=== PATIENT | female | born 1965 | race Caucasian/White ===

== ENCOUNTER → 2017-01-16 | Outpatient (CLI) | payer BC ==
[~2017-01-16] MED LIST: ATV/1 PO; BUPR200T2 PO; PROP20TA67 PO; ZOLP5TAB PO
--- NOTE | 2017-01-17 14:35 | MAMMOGRAPHY REPORT ---
BILATERAL DIGITAL SCREENING MAMMOGRAM TOMOSYNTHESIS WITH CAD: 01/16/2017 CLINICAL HISTORY: Routine screening. Patient has no complaints. TECHNIQUE: Breast tomosynthesis in addition to standard 2D mammography was performed. Current study was also evaluated with a Computer Aided Detection (CAD) system. COMPARISON: Comparison is made to exams dated: 01/14/2016 mammogram, 01/12/2015 mammogram, 10/08/2013 mammogram, 07/18/2011 mammogram, 06/15/2010 mammogram, and 12/27/2009 mammogram - [facility]. BREAST COMPOSITION: The tissue of both breasts is almost entirely fatty. FINDINGS: No suspicious masses, calcifications, or areas of architectural distortion are noted in e ither breast. There has been no significant interval change compared to prior exams. Small mass wit h an associated biopsy marker clip in the right upper outer quadrant is stable. IMPRESSION: ACR BI-RADS CATEGORY 2: BENIGN There is no mammographic evidence of malignancy. A 1 year screening mammogram is recommended. The p atient will receive written notification of the results. Approximately 10% of breast cancers are not detected with mammography. A negative mammographic repor t should not delay biopsy if a clinically suggestive mass is present. Criselda Fox M.D. /:01/17/2017 11:38:14 Education And Outreach Coordinator: Aileen Bloom, [facility] letter sent: Normal 1/2 BI-RADS Code: ACR BI-RADS Category 2: Benign
== END | disposition home or self-care (01) ==
LOC: C.MAMM 08:47
PROVIDERS: ATTEND Family Medicine
DX: Z12.31 Encounter for screening mammogram for malignant neoplasm of breast (principal)

== ENCOUNTER 2017-09-19 13:10 | Emergency (ER) | payer BC ==
[~2017-09-19] VITALS: Ht 162.6 cm; Wt 95.6 kg
[2017-09-19 13:12] VITALS: TEMP 36.7
[2017-09-19 13:40] VITALS: O2SAT 95
--- NOTE | 2017-09-19 13:46 | EMERGENCY ROOM VISIT NOTE ---
History Report prepared by Lawson: Ivone Gregory Under the Supervision of: Dr. Alexei Maier M.D. First contact with patient: 13:35 Chief Complaint: CHEST PAIN Stated Complaint: CHEST PAIN Nursing Triage Summary: pt reports chest pain started today uncomfortable to wear bra stabbing feeling into back started at 0730 this am feels hot and cold migraine headache . feels shakey History of Present Illness The patient is a 52 year old female with a past medical history of endometriosis, hypertension, and genital herpes simplex who presents to the ED with a cc of intermittent left chest pain beginning 2 weeks ago. Positive nausea , vomiting, and productive cough. Negative diabetes. The patient states her pain worsens when touched. She notes that nothing seems to relieve her symptoms. She states she has had a migraine, noting she hasn't had one in years. The patient notes she is a smoker. Source of History: patient Onset: 2 weeks ago Position: chest (left) Timing: intermittent Modifying Factors (Worsening): other (touch) Associated Symptoms: + cough (productive), + nausea, + vomiting Review of Systems See HPI for pertinent positives and negatives. A total of ten systems were reviewed and were otherwise negative. Past Medical & Surgical Medical Problems: (1) Chest pain (2) Endometriosis (3) Genital herpes simplex Family History Diabetes mellitus Social History Smoking Status: Current Every Day Smoker Marital Status: Housing Status: lives with significant other Occupation Status: employed Current/Historical Medications Scheduled Bupropion HCl (Bupropion HCl Sr), 1 TAB PO DAILY Doxepin HCl (Doxepin HCl), 1 CAP PO DAILY Ibuprofen-Famotidine (Duexis), 1 TAB PO UD Lorazepam (Ativan), 1 MG PO HS Ondasetron Odt (Zofran Odt), 4 MG SL Q6H Propranolol (Inderal), 40 MG PO BID Scheduled PRN Zolpidem Tartrate (Ambien), 5 MG PO HS PRN for Sleep Allergies Coded Allergies: Codeine (Verified Allergy, Unknown, ., 09/19/17) Metronidazole (Verified Allergy, Unknown, ., 09/19/17) Physical Exam Vital Signs Date Time Temp Pulse Resp B/P (MAP) Pulse Ox O2 Delivery O2 Flow Rate FiO2 09/19/17 16:00 59 20 129/68 97 Room Air 09/19/17 15:30 59 18 138/88 09/19/17 15:00 65 19 122/58 96 Room Air 09/19/17 14:48 57 16 119/72 94 Room Air 09/19/17 13:40 61 20 146/94 94 Room Air 09/19/17 13:40 95 Room Air 09/19/17 13:37 64 09/19/17 13:12 36.7 69 18 168/95 100 Room Air Physical Exam GENERAL: Awake, alert, well-appearing, NAD HENT: Normocephalic, atraumatic. EYES: Normal conjunctiva. Sclera non-icteric. NECK: Supple. No nuchal rigidity. FROM. RESPIRATORY: CTAB, no rhonchi, wheezing, crackles CARDIAC: RRR, no MRG ABDOMEN: Mild epigastric pain. Soft, BS+ MSK: Mild chest wall TTP, no LE edema NEURO: GCS 15, CN 2-12 intact, moves all 4s on command SKIN: No rash or jaundice noted. Medical Decision & Procedures ER Provider Diagnostic Interpretation: Radiology results as stated below per my review and radiologist interpretation: CHEST ONE VIEW PORTABLE CLINICAL HISTORY: 52 years-old Female presenting with EVALUATE RESPIRATORY DISTRESS.DYSPNEA. TECHNIQUE: Portable upright AP view of the chest was obtained. COMPARISON: 01/05/2015. FINDINGS: Cardiomediastinal silhouette normal. Mild pulmonary vascular prominence. Lungs and pleural spaces clear. Osseous structures normal. Upper abdomen normal. IMPRESSION: 1. Mild pulmonary vascular prominence could suggest volume overload. Otherwise no acute cardiopulmonary disease. Electronically signed by: Ronald Archer M.D. 09/19/2017 2:21 PM Dictated Date/Time: 09/19/2017 2:19 PM Laboratory Results 09/19/17 13:40 Red Blood Count 4.49, Mean Corpuscular Volume 95.3, Mean Corpuscular Hemoglobin 31.6, Mean Corpuscular Hemoglobin Concent 33.2, Mean Platelet Volume 10.8, Neutrophils (%) (Auto) 71.5, Lymphocytes (%) (Auto) 19.3, Monocytes (%) (Auto) 8.2, Eosinophils (%) (Auto) 0.4, Basophils (%) (Auto) 0.2, Neutrophils # (Auto) 7.63, Lymphocytes # (Auto) 2.06, Monocytes # (Auto) 0.87, Eosinophils # (Auto) 0.04, Basophils # (Auto) 0.02 09/19/17 13:40 Test 09/19/17 13:40 09/19/17 14:45 White Blood Count 10.66 K/uL (4.8-10.8) Red Blood Count 4.49 M/uL (4.2-5.4) Hemoglobin 14.2 g/dL (12.0-16.0) Hematocrit 42.8 % (37-47) Mean Corpuscular Volume 95.3 fL (80-100) Mean Corpuscular Hemoglobin 31.6 pg (25-34) Mean Corpuscular Hemoglobin Concent 33.2 g/dl (32-36) Platelet Count 290 K/uL (130-400) Mean Platelet Volume 10.8 fL (7.4-10.4) Neutrophils (%) (Auto) 71.5 % Lymphocytes (%) (Auto) 19.3 % Monocytes (%) (Auto) 8.2 % Eosinophils (%) (Auto) 0.4 % Basophils (%) (Auto) 0.2 % Neutrophils # (Auto) 7.63 K/uL (1.4-6.5) Lymphocytes # (Auto) 2.06 K/uL (1.2-3.4) Monocytes # (Auto) 0.87 K/uL (0.11-0.59) Eosinophils # (Auto) 0.04 K/uL (0-0.5) Basophils # (Auto) 0.02 K/uL (0-0.2) RDW Standard Deviation 46.1 fL (36.4-46.3) RDW Coefficient of Variation 13.4 % (11.5-14.5) Immature Granulocyte % (Auto) 0.4 % Immature Granulocyte # (Auto) 0.04 K/uL (0.00-0.02) Prothrombin Time 9.7 SECONDS (9.0-12.0) Prothromb Time International Ratio 0.9 (0.9-1.1) Activated Partial Thromboplast Time 25.3 SECONDS (21.0-31.0) Partial Thromboplastin Ratio 1.0 Anion Gap 3.0 mmol/L (3-11) Est Creatinine Clear Calc Drug Dose 77.8 ml/min Estimated GFR () 79.4 Estimated GFR (Non- 68.5 BUN/Creatinine Ratio 13.9 (10-20) Calcium Level 8.8 mg/dl (8.5-10.1) Total Bilirubin 0.4 mg/dl (0.2-1) Aspartate Amino Transf (AST/SGOT) 12 U/L (15-37) Alanine Aminotransferase (ALT/SGPT) 28 U/L (12-78) Alkaline Phosphatase 103 U/L (45-117) Troponin I < 0.015 ng/ml (0-0.045) Pro-B-Type Natriuretic Peptide 75 pg/ml (0-900) Total Protein 7.4 gm/dl (6.4-8.2) Albumin 3.6 gm/dl (3.4-5.0) Globulin 3.8 gm/dl (2.5-4.0) Albumin/Globulin Ratio 0.9 (0.9-2) Urine Color YELLOW Urine Appearance CLEAR (CLEAR) Urine pH 6.5 (4.5-7.5) Urine Specific [place] 1.011 (1.000-1.030) Urine Protein NEG (NEG) Urine Glucose (UA) NEG (NEG) Urine Ketones NEG (NEG) Urine Occult Blood NEG (NEG) Urine Nitrite NEG (NEG) Urine Bilirubin NEG (NEG) Urine Urobilinogen NEG (NEG) Urine Leukocyte Esterase NEG (NEG) Laboratory results reviewed by me Medications Administered Medications (Trade) Dose Ordered Sig/Travis Route Start Time Stop Time Status Last Admin Dose Admin Acetaminophen (Tylenol Tab) 1,000 mg NOW STAT PO 09/19/17 13:52 09/19/17 13:55 DC 09/19/17 14:06 1,000 MG Ondansetron HCl (Zofran Inj) 4 mg NOW STAT IV 09/19/17 13:52 09/19/17 13:55 DC 09/19/17 14:06 4 MG Famotidine (Pepcid Tab) 20 mg NOW ONCE PO 09/19/17 14:00 09/19/17 14:01 DC 09/19/17 14:06 20 MG Ketorolac Tromethamine (Toradol Inj) 30 mg NOW STAT IV 09/19/17 13:52 09/19/17 13:56 DC 09/19/17 14:06 30 MG Lidocaine HCl (Viscous Lidocaine 2% Soln) 20 ml STK-MED ONCE .ROUTE 09/19/17 14:01 09/19/17 14:02 DC 09/19/17 14:06 10 ML Al Hydroxide/Mg Hydroxide (Maalox Susp) 30 ml STK-MED ONCE .ROUTE 09/19/17 14:01 09/19/17 14:02 DC 09/19/17 14:06 30 ML Cyclobenzaprine HCl (Flexeril Tab) 5 mg ONE STAT PO 09/19/17 15:52 09/19/17 16:01 DC 09/19/17 16:07 5 MG ECG Indication: chest pain Rate (beats per minute): 72 Rhythm: normal sinus Findings: left axis deviation (some), other (normal intervals, isolated TWI lead 3) ED Course 1344: The patient was evaluated in room C5. A complete history and physical exam was performed. Encountered for smoking cessation counseling. 1435: I reevaluated the patient, who was resting comfortably. I discussed some findings with her. She verbalized complete understanding and agreement. 1533: I reevaluated the patient, who was resting comfortably. She states that she feels better but she is not back to her normal state. Discussed results and discharge instructions: She verbalized understanding and agreement. The patient is ready for discharge. Medical Decision The patient is a 52 year old female with a past medical history of endometriosis, hypertension, and genital herpes simplex who presents to the ED with a cc of intermittent left chest pain beginning 2 weeks ago. Differential diagnosis: Etiologies such as metabolic, infection, hypo/hyperglycemia, electrolyte abnormalities, cardiac sources, intracerebral event, toxicologic, neurologic, as well as others were entertained. Patient was seen and evaluated the bedside. Patient did complain of some left- sided chest pain that have began about 2 weeks ago. Patient thought it was either extraintestinal did take some Tums with some mild relief however it is been slightly more persistent. On exam the patient does complain of that decision to headache. Patient has a normal neurologic exam. Patient does have mild reproducible left sided chest pain. Patient did not complain of any diaphoresis or exertional chest pain. Patient has no family history of early cardiac disease before the age 65. Patient is a smoker. Patient was told that she should consider smoking cessation. Patient did have blood work completed along with an EKG, troponin, chest x-ray. Patient's EKG did show a single isolated T wave inversion in lead 3. Patient does have some risk factors and his over the age of 50 however the patient's heart score is less than 4 and thus likely low risk and suitable for outpatient follow-up and treatment. Patient was advised follow-up with her primary care physician with regard to this. Patient is PRC 01 given her age however the patient has a Wells of 0 less less likely PE. Patient's chest x-ray showed mild pulm prominence. However, the patient did not show signs of right heart strain as the patient does not have any right axis deviation nor did she have T-wave inversions in the anterior leads. CXR did not show any evidence of consolidation, pneumothorax, or pleural effusion. Patient's pain was mildly improved. Patient was deemed suitable for outpatient follow-up and treatment at this time. Patient was given strict follow-up, discharge, and return precautions. All questions were answered. Patient was deemed suitable for outpatient follow-up at this time. Patient agreed with the plan of care and was safely discharged home. Medication Reconcilliation Current Medication List: was personally reviewed by me Blood Pressure Screening Patient's blood pressure: Normal blood pressure Blood pressure disposition: Did not require urgent referral Impression Primary Impression: Chest pain Additional Impressions: Epigastric pain Encounter for smoking cessation counseling Scribe Attestation The scribe's documentation has been prepared under my direction and personally reviewed by me in its entirety. I confirm that the note above accurately reflects all work, treatment, procedures, and medical decision making performed by me. Departure Information Dispostion Home / Self-Care Prescriptions Ondasetron Odt (ZOFRAN ODT) 4 Mg Tab 4 MG SL Q6H for Nausea, #6 TAB Prov: Alexei Maier M.D. 09/19/17 Referrals Rob Hamlin, DJossyOJossy (PCP) Forms Call Back Authorization, HOME CARE DOCUMENTATION FORM, IMPORTANT VISIT INFORMATION Patient Instructions Chest Pain - [facility], ED Epigastric Pain [facility] Additional Instructions Please return to the emergency department if you have worsening or recurrent symptoms not amenable to at-home treatment. Please call for a follow-up appointment with her primary care physician. Please take your medications as prescribed. If you have other concerns and/or complaints please feel free to also call your primary care physician's office or return the ED for further evaluation, management, and treatment. You may try mcon-inl-mzznbgw type medications like Zantac or Pepcid. You may also try Nexium if this does not work. Try smaller meals and avoid spicy, citrus, alcohol, tobacco, peppermint, chocolate. Consider eating smaller meals. Please consider smoking cessation. Please also follow-up with your primary care physician to discuss further follow -up, treatment, and management of your chest pain. Take your medications as prescribed. You have been examined and treated today on an emergency basis only. This is not a substitute for, or an effort to provide, complete comprehensive medical care. It is impossible to recognize and treat all injuries or illnesses in a single emergency department visit. It is therefore important that you follow up closely with [facility], your PCP, and/or your specialist(s). Call as soon as possible for an appointment. Thank you for your time and consideration. I look forward to speaking with you again soon. Please don't hesitate to call us if you have any questions. Problem Qualifiers Primary Impression: Chest pain Chest pain type: unspecified Qualified Codes: R07.9 - Chest pain, unspecified
[2017-09-19] MEDS ORDERED: IBUP1TAB51 PO (13:48)
[2017-09-19] MEDS ORDERED: WLLSR150 PO (13:48)
[2017-09-19] MEDS ORDERED: SNQ25 PO (13:48)
[2017-09-19] MEDS ORDERED: ONDANSETRON INJ 2 MG/ML 2 ML VIAL IV STA (13:52)
[2017-09-19] MEDS ORDERED: ACETAMINOPHEN 500 MG TAB PO STA (13:52)
[2017-09-19] MEDS ORDERED: GI COCKTAIL PO STA (13:52)
[2017-09-19] MEDS ORDERED: KETOROLAC TROMETHAMINE 30 MG/ML VIAL IV STA (13:52)
[2017-09-19 13:56] VITALS: Ht 162.6 cm; Wt 95.6 kg
[2017-09-19] MEDS ORDERED: FAMOTIDINE 20 MG TAB PO ONE (14:00)
[2017-09-19] MEDS ORDERED: ALUMINUM/MAGNESIUM SUSP 30 ML UDC ONE (14:01)
[2017-09-19] MEDS ORDERED: LIDOCAINE HCL 2% VISC SOLN 20 ML UDC ONE (14:01)
[2017-09-19 14:12] LABS: BASO % 0.2 %; BASO ABS # 0.02 K/uL (0-0.2); COMPLETE YES; EOS % 0.4 %; HEMATOCRIT 42.8 % (37-47); IG% 0.4 %; LYMPH % 19.3 %; LYMPH ABS # 2.06 K/uL (1.2-3.4); MEAN CELL VOLUME 95.3 fL (80-100); MEAN CORPUSCULAR HEMOGLOBIN 31.6 pg (25-34); MEAN CORPUSCULAR HGB CONC 33.2 g/dl (32-36); MEAN PLATELET VOLUME 10.8 fL (7.4-10.4); MONO % 8.2 %; NEUT % 71.5 %; PLATELET COUNT 290 K/uL (130-400); RED BLOOD COUNT 4.49 M/uL (4.2-5.4); WHITE BLOOD COUNT 10.66 K/uL (4.8-10.8)
[2017-09-19 14:16] LABS: INR 0.9 (0.9-1.1); PROTHROMBIN TIME (PATIENT) 9.7 SECONDS (9.0-12.0)
--- NOTE | 2017-09-19 14:22 | DIAGNOSTIC IMAGING REPORT ---
CHEST ONE VIEW PORTABLE CLINICAL HISTORY: 52 years-old Female presenting with EVALUATE RESPIRATORY DISTRESS.DYSPNEA. TECHNIQUE: Portable upright AP view of the chest was obtained. COMPARISON: 01/05/2015. FINDINGS: Cardiomediastinal silhouette normal. Mild pulmonary vascular prominence. Lungs and pleural spaces clear. Osseous structures normal. Upper abdomen normal. IMPRESSION: 1. Mild pulmonary vascular prominence could suggest volume overload. Otherwise no acute cardiopulmonary disease. Electronically signed by: Ronald Archer M.D. 09/19/2017 2:21 PM Dictated Date/Time: 09/19/2017 2:19 PM
[2017-09-19 14:30] LABS: ALT/SGPT 28 U/L (12-78); AST/SGOT 12 U/L (15-37); BLOOD UREA NITROGEN 13 mg/dl (7-18); BUN/CREATININE RATIO 13.9 (10-20); CALCIUM 8.8 mg/dl (8.5-10.1); CARBON DIOXIDE 28 mmol/L (21-32); CHLORIDE 107 mmol/L (98-107); CREATININE 0.96 mg/dl (0.60-1.20); GLUCOSE 95 mg/dl (70-99); POTASSIUM 3.7 mmol/L (3.5-5.1); SODIUM 138 mmol/L (136-145)
[2017-09-19 14:35] LABS: ALB/GLOB RATIO 0.9 (0.9-2); ALKALINE PHOSPHATASE 103 U/L (45-117)
[2017-09-19 14:56] LABS: URINE APPEARANCE CLEAR (CLEAR); URINE BILIRUBIN NEG (NEG); URINE COLOR YELLOW; URINE NITRITE NEG (NEG); URINE PH 6.5 (4.5-7.5); URINE SPECIFIC GRAVITY 1.011 (1.000-1.030); UROBILINOGEN NEG (NEG)
[2017-09-19 14:58] LABS: MANUAL MICROSCOPIC REQUIRED? NO; REVIEW REQ? NO
[2017-09-19] MEDS ORDERED: CYCLOBENZAPRINE HCL 5 MG TAB PO STA (15:52)
[2017-09-19 16:00] VITALS: BP 129/68; PULSE 59; O2SAT 97
[2017-09-19] MEDS ORDERED: ONDA4TAB10 SL (16:04)
== END 2017-09-19 16:19 | disposition home or self-care (01) ==
LOC: C.EDB 13:11 → C.EDC 16:19
DX: R07.9 Chest pain, unspecified (principal); R10.13 Epigastric pain; Z71.6 Tobacco abuse counseling; I10 Essential (primary) hypertension; Z87.42 Personal history of other diseases of the female genital tract; R11.2 Nausea with vomiting, unspecified; R05 Cough; Z79.899 Other long term (current) drug therapy; Z83.3 Family history of diabetes mellitus; F17.200 Nicotine dependence, unspecified, uncomplicated

== ENCOUNTER → 2018-01-18 | Outpatient (CLI) | payer BC ==
[~2018-01-18] MED LIST changes: -BUPR200T2 PO; +IBUP1TAB51 PO; +ONDA4TAB10 SL; +SNQ25 PO; +WLLSR150 PO
--- NOTE | 2018-01-21 07:49 | MAMMOGRAPHY REPORT ---
BILATERAL DIGITAL SCREENING MAMMOGRAM TOMOSYNTHESIS WITH CAD: 01/18/2018 CLINICAL HISTORY: Routine screening. Patient has no complaints. TECHNIQUE: Breast tomosynthesis in addition to standard 2D mammography was performed. Current study was also evaluated with a Computer Aided Detection (CAD) system. COMPARISON: Comparison is made to exams dated: 01/16/2017 mammogram, 01/14/2016 mammogram, 01/12/2015 m ammogram, 10/08/2013 mammogram, 07/18/2011 mammogram, and 06/15/2010 mammogram - [facility]. BREAST COMPOSITION: The tissue of both breasts is almost entirely fatty. FINDINGS: No suspicious masses, calcifications, or areas of architectural distortion are noted in ei ther breast. There has been no significant interval change compared to prior exams. Small mass with an associated biopsy marker clip in the right upper outer quadrant is stable. Scattered benign-appea ring calcifications are stable. IMPRESSION: ACR BI-RADS CATEGORY 2: BENIGN There is no mammographic evidence of malignancy. A 1 year screening mammogram is recommended. The pa tient will receive written notification of the results. Approximately 10% of breast cancers are not detected with mammography. A negative mammographic report should not delay biopsy if a clinically suggestive mass is present. Criselda Fox M.D. ah/:01/18/2018 10:04:06 Vp Of Technology: Sheryl CHANDRA)(M), [facility] letter sent: Normal 1/2 BI-RADS Code: ACR BI-RADS Category 2: Benign
== END | disposition home or self-care (01) ==
LOC: C.MAMM 08:29
PROVIDERS: ATTEND Family Medicine
DX: Z12.31 Encounter for screening mammogram for malignant neoplasm of breast (principal)

== ENCOUNTER 2018-05-03 18:06 | Emergency (ER) | payer BC ==
[~2018-05-03] VITALS: Ht 162.6 cm; Wt 88.8 kg
[~2018-05-03 18:06] MED LIST changes: -ONDA4TAB10 SL
[2018-05-03 18:27] VITALS: TEMP 36.7; Ht 162.6 cm; Wt 88.8 kg
[2018-05-03] MEDS ORDERED: LIDOCAINE/EPINEPHRINE 1% 20 ML VIAL INFIL STA (19:58)
[2018-05-03] MEDS ORDERED: DIPHTHERIA/TETANUS/PERTUSSIS 0.5 ML SYR/VIAL IM. ONE (20:00)
--- NOTE | 2018-05-03 20:37 | EMERGENCY ROOM VISIT NOTE ---
ED Visit Note First contact with patient: 19:54 Chief Complaint: "Laceration to right ankle, need stitches". History of Present Illness: This patient is a 52-year-old female who presents to the Emergency Department via private vehicle for evaluation of their right lateral ankle laceration. Patient sustained the laceration while moving a chainsaw, when the chainsaw which was not running fell and struck her right ankle. They report a more amount of bleeding initially. They deny any numbness or tingling into the distal extremity. They have tried nothing for the pain with no relief of their symptoms. Patient rates her current discomfort as a 2/ 10. Patient's Tetanus status is not currently up-to-date. Medications: As noted below Allergies: Codeine, Flagyl PMH: No pertinent SHx: Patient is currently moving locations. ROS: All pertinent positive and negative review of systems are appropriately documented in the History of Present Illness. Physical Exam: VITAL SIGNS - Vital signs and nursing notes were reviewed. Stable. GENERAL -52-year-old female appearing her stated age who is in no acute distress. Communicates well with provider and answers questions appropriately. SKIN - There is a 3 cm long laceration noted right lateral ankle. The edges gape apart with traction. No foreign bodies appreciated. Upon further examination there are no deep structures including vessel, tendon, or bony structures appreciated. There is no active bleeding noted. MUSCULOSKELETAL -full range of motion of the right ankle assessed. NEUROLOGIC - Spinothalamic tract was found to be intact with ability to discriminate sharp versus dull sensation. No sensory defects of the dorsal column were appreciated utilizing light touch for evaluation. VASCULAR - Capillary refill was brisk. ED Course: Patient was seen and evaluated by myself. Risks and benefits of performing primary wound closure versus no repair were discussed with the patient who verbalizes understanding. Verbal consent was obtained prior to performing the procedure. 4 cc of 1% buffered lidocaine with epinephrine was used to anesthetize the 3 cm right lateral ankle laceration. The wound was cleansed and prepped in the typical sterile fashion utilizing normal saline and Betadine. The wound was sterilely draped. Once proper anesthetization was established, the wound was further examined and demonstrated no deep involvement. The wound was copiously irrigated with normal saline and Betadine. The wound was closed using 7 simple, 4-0 nylon sutures with the wound edges being well approximated. Patient tolerated the procedure well. No complications were met. The wound was cleansed and dressed with a Bacitracin dressing. Patient received their Adacel vaccination. Patient educated on worrisome symptoms for return visit to the Emergency Department. Patient discharged to home in good condition. Problem List Medical Problems: (1) Chest pain Status: Chronic (2) Endometriosis Status: Chronic (3) Genital herpes simplex Status: Chronic Current/Historical Medications Scheduled Bupropion HCl (Bupropion HCl Sr), 1 TAB PO DAILY Doxepin HCl (Doxepin HCl), 1 CAP PO DAILY Ibuprofen-Famotidine (Duexis), 1 TAB PO UD Lorazepam (Ativan), 1 MG PO HS Propranolol (Inderal), 40 MG PO BID Scheduled PRN Zolpidem Tartrate (Ambien), 5 MG PO HS PRN for Sleep Allergies Coded Allergies: Codeine (Verified Allergy, Unknown, ., 09/19/17) Metronidazole (Verified Allergy, Unknown, ., 09/19/17) Vital Signs Date Time Temp Pulse Resp B/P (MAP) Pulse Ox O2 Delivery O2 Flow Rate FiO2 05/03/18 18:27 36.7 89 18 134/94 96 Room Air Medications Administered Medications (Trade) Dose Ordered Sig/Travis Route Start Time Stop Time Status Last Admin Dose Admin Diphtheria/ Pertussis/Tetanus Vacc (Adacel Inj) 0.5 ml ONCE ONCE IM. 05/03/18 20:00 05/03/18 20:01 DC 05/03/18 20:48 0.5 ML Departure Information Impression Primary Impression: Laceration Dispostion Home / Self-Care Condition GOOD Referrals Rob Hamlin, D.O. (PCP) Patient Instructions [facility]
[2018-05-03 20:52] VITALS: BP 148/93; PULSE 72; O2SAT 97
== END 2018-05-03 20:53 | disposition home or self-care (01) ==
LOC: C.EDB 18:08 → C.EDD 20:53
DX: S91.011A Laceration without foreign body, right ankle, initial encounter (principal); W29.3XXA Contact with powered garden and outdoor hand tools and machinery, initial encounter; Z23 Encounter for immunization; Z79.899 Other long term (current) drug therapy; Z88.6 Allergy status to analgesic agent; Z88.1 Allergy status to other antibiotic agents

== ENCOUNTER 2018-05-18 13:02 | Emergency (ER) | payer BC ==
[~2018-05-18] VITALS: Ht 167.6 cm; Wt 89.7 kg
[2018-05-18 13:08] VITALS: BP 127/84; PULSE 78; TEMP 36.8; O2SAT 99; Ht 167.6 cm; Wt 89.7 kg
--- NOTE | 2018-05-18 13:20 | EMERGENCY ROOM VISIT NOTE ---
ED Visit Note First contact with patient: 13:12 CHIEF COMPLAINT: Suture removal This patient returns to the ED today for removal of sutures that were placed 14 days ago. There has been no swelling, redness, or drainage from the wound. The patient feels like the laceration is healing well. REVIEW OF SYSTEMS: Head: No headache, injury or neck pain. Skin: No rash, new lesions, or masses. General: No fever or chills, fatigue, loss of appetite , or significant recent weight gain or loss. PMH: Reviewed and unchanged from prior visit. SOCIAL HISTORY: Patient lives at home. PHYSICAL EXAM: Vital Signs: Reviewed Nurse's notes. There is a sutured wound on the lateral right ankle with no signs of infection. There is no erythema, swelling, or tenderness. EMERGENCY DEPARTMENT COURSE: The sutures were removed without any difficulty and there was no separation of the wound edges. Wound was reinforced with benzoin and Steri-Strips. Problem List Medical Problems: (1) Chest pain Status: Chronic (2) Endometriosis Status: Chronic (3) Genital herpes simplex Status: Chronic Current/Historical Medications Scheduled Bupropion HCl (Bupropion HCl Sr), 1 TAB PO DAILY Doxepin HCl (Doxepin HCl), 1 CAP PO DAILY Ibuprofen-Famotidine (Duexis), 1 TAB PO UD Lorazepam (Ativan), 1 MG PO HS Propranolol (Inderal), 40 MG PO BID Scheduled PRN Zolpidem Tartrate (Ambien), 5 MG PO HS PRN for Sleep Allergies Coded Allergies: Codeine (Verified Allergy, Unknown, ., 09/19/17) Metronidazole (Verified Allergy, Unknown, ., 09/19/17) Vital Signs Date Time Temp Pulse Resp B/P (MAP) Pulse Ox O2 Delivery O2 Flow Rate FiO2 05/18/18 13:08 36.8 78 20 127/84 99 Room Air Departure Information Impression Primary Impression: Encounter for removal of sutures Referrals Rob Hamlin D.OJossy (PCP) Patient Instructions [facility]
== END 2018-05-18 13:24 | disposition home or self-care (01) ==
LOC: C.EDB 13:03 → C.EDD 13:24
DX: S91.011D Laceration without foreign body, right ankle, subsequent encounter (principal); X58.XXXD Exposure to other specified factors, subsequent encounter; Z79.899 Other long term (current) drug therapy; Z88.5 Allergy status to narcotic agent; Z88.1 Allergy status to other antibiotic agents